=== PATIENT | female | born 2000 | race Caucasian/White ===

== ENCOUNTER 2024-07-27 03:30 | Inpatient (IN) | payer MEDICAID ==
[2024-07-27] MEDS ORDERED: Ondansetron 4 MG/2 ML SDV IV PRN (04:54)
[2024-07-27] MEDS ORDERED: Piperacillin/Tazobactam 3.375 GM AdvVial ONE (04:58)
[2024-07-27] MEDS: Piperacillin/Tazobactam 3.375 GM in Sodium Chloride 0.9% 50 ML IV ONE (05:10)
[2024-07-27] MEDS: Morphine 2 MG/ML SYRINGE IVPUSH PRN (05:25)
[2024-07-27] MEDS ORDERED: fentaNYL 250 MCG/5 ML SDV ONE ×2 (05:34→06:26)
[2024-07-27] MEDS: Scopalamine 1mg/3day Transdermal Patch TRDERM PRN (05:34)
[2024-07-27] MEDS ORDERED: Glycopyrrolate 0.2 MG/ML 5 ML MDV ONE (05:35)
[2024-07-27] MEDS ORDERED: Ondansetron 4 MG/2 ML SDV ONE (05:35)
[2024-07-27] MEDS ORDERED: Rocuronium 50 MG/5 ML Vial ONE ×2 (05:35→06:25)
[2024-07-27] MEDS ORDERED: Dexamethasone 4 MG/ML SDV ONE (05:35)
[2024-07-27] MEDS ORDERED: Propofol 200 MG/20 ML SDV ONE (05:35)
[2024-07-27] MEDS ORDERED: Neostigmine Methylsulfate 10 MG/10 ML MDV ONE (05:35)
[2024-07-27] MEDS ORDERED: Succinylcholine 200 MG/10 ML MDV ONE (05:35)
[2024-07-27 05:40] LABS: BASOPHILS ABSOLUTE AUTO 0.03 K/uL (0.00-0.10); BASOPHILS PERCENT AUTO 0.2 % (0.1-1.3); EOSINOPHILS ABSOLUTE AUTO 0.01 K/uL (0.00-0.40); EOSINOPHILS PERCENT AUTO 0.1 % (0.0-5.4); HEMATOCRIT 26.5 % (34.3-46.0); HEMOGLOBIN 8.2 g/dL (11.2-15.5); IMMATURE GRAN ABSOLUTE AUTO 0.05 K/uL (0.00-0.23); IMMATURE GRAN PERCENT AUTO 0.4 % (0.0-0.7); LYMPHOCYTES ABSOLUTE AUTO 1.59 K/uL (0.8-3.3); MEAN CORPUSCULAR HGB CONC 30.9 g/dL (31.6-35.5); MEAN CORPUSCULAR VOLUME 77.7 fL (81.4-99.0); MONOCYTES ABSOLUTE AUTO 0.56 K/uL (0.20-0.90); MONOCYTES PERCENT AUTO 4.6 % (3.3-12.6); NEUTROPHILS ABSOLUTE AUTO 10.03 K/uL (1.0-7.6); NEUTROPHILS PERCENT AUTO 81.7 % (40.0-78.1); PLATELET COUNT,PLT 303 K/uL (130-375); RED BLOOD CELL COUNT 3.41 M/uL (3.77-5.24); WHITE BLOOD CELL COUNT,WBC 12.3 K/uL (3.2-11.0)
[2024-07-27] MEDS ORDERED: CHECK PATCH DAILY TOP PRN (05:44)
[2024-07-27 06:01] LABS: A/G RATIO 1.1 (1.2-2.2); ALANINE AMINOTRANSFERASE,ALT 19 U/L (12-78); ALBUMIN 3.2 g/dL (3.4-5.0); ALKALINE PHOSPHATASE 77 U/L (46-116); ANION GAP 9.7 mmol/L (5.0-14.0); ASPARTATE AMNIOTRANSFERASE,AST 15 U/L (15-37); BILIRUBIN TOTAL 0.6 mg/dL (0.2-1.0); BLOOD UREA NITROGEN,BUN 8 mg/dL (7-18); CALCIUM 8.6 mg/dL (8.5-10.1); CARBON DIOXIDE,CO2 26 mmol/L (21-32); CHLORIDE,CL 106 mmol/L (100-108); CREATININE 0.6 mg/dL (0.6-1.0); EST CRCL DRUG DOSING (CG) 133.29 mL/min; ESTIMATED GFR 129 mL/min (>60); GLUCOSE RANDOM 106 mg/dL (74-106); POTASSIUM,K 3.6 mmol/L (3.6-5.2); SODIUM,NA 142 mmol/L (140-148)
[2024-07-27] MEDS: Sodium Chloride 0.9% 50 ML ONE (06:03)
[2024-07-27] MEDS: Bupivacaine 0.25%/EPINEPHrine 1:200,000 30 ML SDV ONE (06:15)
[2024-07-27] MEDS ORDERED: Lactated Ringers 1,000 ML ONE (06:22)
[2024-07-27] MEDS ORDERED: Labetalol 20 MG/4 ML Syringe ONE (06:24)
[2024-07-27 07:16] LABS: AMPHETAMINES SCREEN, URINE NEGATIVE (NEGATIVE); BARBITURATE SCREEN,URINE NEGATIVE (NEGATIVE); BENZODIAZEPINES SCREEN,URINE NEGATIVE (NEGATIVE); METHADONE SCREEN, URINE NEGATIVE (NEGATIVE); METHAMPHETAMINES SCREEN, URINE NEGATIVE (NEGATIVE); OXYCODONE SCREEN,URINE NEGATIVE (NEGATIVE); PROPOXYPHENE SCREEN,URINE NEGATIVE (NEGATIVE); THC SCREEN,URINE 50 NG/ML PRESUMPTIVE POSITIVE (NEGATIVE)
[2024-07-27] MEDS ORDERED: Sugammadex Sodium 200 MG/2 ML VIAL IV ONE (08:18)
[2024-07-27] MEDS: HYDROmorphone 1 MG/ML Syringe IVPUSH ONE (08:40)
[2024-07-27] MEDS: hydrOXYzine HCL 100 MG/2 ML SDV IM ONE (08:42)
[2024-07-27] MEDS: SCOPOLAMINE PATCH CHECK TOP SCH (09:18)
[2024-07-27] MEDS: Sodium Chloride 0.9% 1,000 ML IV SCH (09:22)
[2024-07-27] MEDS: Pantoprazole 40 MG Vial IV SCH (09:24)
[2024-07-27] MEDS: HYDROmorphone 0.5 MG/0.5 ML Syringe IVPUSH ONE (10:29)
[2024-07-27] MEDS: Piperacillin/Tazobactam/Dext 4.5 GM in Premix Bag 1 BAG IV ONE (13:34)
[2024-07-27] MEDS: Piperacillin/Tazobactam/Dext 4.5 GM in Premix Bag 1 BAG IV SCH (16:51)
[2024-07-27] MEDS: Acetaminophen 1,000 MG in Premix Bag 1 BAG IV PRN (20:26)
[2024-07-28 09:36] LABS: BASOPHILS ABSOLUTE AUTO 0.03 K/uL (0.00-0.10); BASOPHILS PERCENT AUTO 0.3 % (0.1-1.3); EOSINOPHILS ABSOLUTE AUTO 0.04 K/uL (0.00-0.40); EOSINOPHILS PERCENT AUTO 0.4 % (0.0-5.4); HEMATOCRIT 24.7 % (34.3-46.0); HEMOGLOBIN 7.6 g/dL (11.2-15.5); IMMATURE GRAN ABSOLUTE AUTO 0.03 K/uL (0.00-0.23); IMMATURE GRAN PERCENT AUTO 0.3 % (0.0-0.7); LYMPHOCYTES ABSOLUTE AUTO 2.87 K/uL (0.8-3.3); LYMPHOCYTES PERCENT AUTO 30.1 % (11.4-47.7); MEAN CORPUSCULAR HEMOGLOBIN 23.9 pg (31.6-35.5); MEAN CORPUSCULAR HGB CONC 30.8 g/dL (31.6-35.5); MEAN CORPUSCULAR VOLUME 77.7 fL (81.4-99.0); MONOCYTES ABSOLUTE AUTO 0.68 K/uL (0.20-0.90); MONOCYTES PERCENT AUTO 7.1 % (3.3-12.6); NEUTROPHILS PERCENT AUTO 61.8 % (40.0-78.1); PLATELET COUNT,PLT 354 K/uL (130-375); RED BLOOD CELL COUNT 3.18 M/uL (3.77-5.24); WHITE BLOOD CELL COUNT,WBC 9.6 K/uL (3.2-11.0)
[2024-07-28 09:52] LABS: ANION GAP 14.4 mmol/L (5.0-14.0); CALCIUM 8.8 mg/dL (8.5-10.1); CREATININE 0.6 mg/dL (0.6-1.0); EST CRCL DRUG DOSING (CG) 137.26 mL/min; POTASSIUM,K 3.4 mmol/L (3.6-5.2)
[2024-07-28] MEDS: Acetaminophen/HYDROcodone 108-2.5 MG/5 ML Soln 15 ML UD Cup PO PRN (12:12)
[2024-07-28] MEDS ORDERED: Morphine 2 MG/ML SYRINGE IVPUSH PRN (12:45)
[2024-07-28] MEDS: Acetaminophen Soln 650 MG/20.3 ML UD Cup PO PRN (15:16)
[2024-07-29 05:41] LABS: BASOPHILS ABSOLUTE AUTO 0.04 K/uL (0.00-0.10); BASOPHILS PERCENT AUTO 0.6 % (0.1-1.3); EOSINOPHILS ABSOLUTE AUTO 0.11 K/uL (0.00-0.40); EOSINOPHILS PERCENT AUTO 1.6 % (0.0-5.4); HEMATOCRIT 23.3 % (34.3-46.0); HEMOGLOBIN 7.2 g/dL (11.2-15.5); IMMATURE GRAN PERCENT AUTO 0.3 % (0.0-0.7); LYMPHOCYTES ABSOLUTE AUTO 2.99 K/uL (0.8-3.3); LYMPHOCYTES PERCENT AUTO 43.9 % (11.4-47.7); MEAN CORPUSCULAR HEMOGLOBIN 23.7 pg (31.6-35.5); MEAN CORPUSCULAR HGB CONC 30.9 g/dL (31.6-35.5); MEAN CORPUSCULAR VOLUME 76.6 fL (81.4-99.0); MONOCYTES ABSOLUTE AUTO 0.44 K/uL (0.20-0.90); MONOCYTES PERCENT AUTO 6.5 % (3.3-12.6); NEUTROPHILS ABSOLUTE AUTO 3.21 K/uL (1.0-7.6); NEUTROPHILS PERCENT AUTO 47.1 % (40.0-78.1); PLATELET COUNT,PLT 341 K/uL (130-375); RED BLOOD CELL COUNT 3.04 M/uL (3.77-5.24); WHITE BLOOD CELL COUNT,WBC 6.8 K/uL (3.2-11.0)
[2024-07-29 05:46] LABS: IMMATURE GRAN ABSOLUTE AUTO 0.02 K/uL (0.00-0.23)
[2024-07-29 05:50] LABS: CALCIUM 8.4 mg/dL (8.5-10.1); CREATININE 0.6 mg/dL (0.6-1.0); EST CRCL DRUG DOSING (CG) 137.26 mL/min; POTASSIUM,K 3.2 mmol/L (3.6-5.2)
[2024-07-29 05:54] LABS: ANION GAP 15.2 mmol/L (5.0-14.0)
[2024-07-29] MEDS: Potassium Chloride 20 MEQ Tab.ER PO SCH (11:47)
[2024-07-29] MEDS: Sucralfate 1 GM Tab PO SCH (11:57)
[2024-07-29] MEDS: Acetaminophen 500 MG Tab PO SCH (13:00)
[2024-07-29] MEDS ORDERED: Potassium Chloride 10 MEQ in Premix Bag 1 BAG IV SCH (13:00)
[2024-07-29] MEDS: Potassium Chloride 10 MEQ in Premix Bag 1 BAG IV SCH (14:54)
[2024-07-29] MEDS ORDERED: Potassium Chloride 20 MEQ in Premix Bag 1 BAG IV ONE (16:00)
[2024-07-29] MEDS: oxyCODONE 5 MG Tab PO PRN (17:35)
[2024-07-29] MEDS: Piperacillin/Tazobactam/Dext 4.5 GM in Premix Bag 1 BAG IV SCH (19:34)
[2024-07-29] MEDS: traZODone 50 MG Tab PO SCH (23:00)
[2024-07-30 12:25] LABS: CALCIUM 8.7 mg/dL (8.5-10.1); CREATININE 0.6 mg/dL (0.6-1.0); EST CRCL DRUG DOSING (CG) 137.26 mL/min; POTASSIUM,K 3.2 mmol/L (3.6-5.2)
[2024-07-30] MEDS: Amoxicillin/Clavulanate K 875-125 MG Tab PO SCH (12:58)
[2024-07-30 13:00] LABS: ANION GAP 15.2 mmol/L (5.0-14.0)
[2024-07-30] MEDS ORDERED: traZODone 50 MG Tab PO SCH (21:00)
[2024-07-31 05:44] LABS: BASOPHILS ABSOLUTE AUTO 0.05 K/uL (0.00-0.10); BASOPHILS PERCENT AUTO 0.9 % (0.1-1.3); EOSINOPHILS ABSOLUTE AUTO 0.09 K/uL (0.00-0.40); EOSINOPHILS PERCENT AUTO 1.6 % (0.0-5.4); HEMATOCRIT 26.5 % (34.3-46.0); HEMOGLOBIN 8.1 g/dL (11.2-15.5); IMMATURE GRAN PERCENT AUTO 0.4 % (0.0-0.7); LYMPHOCYTES ABSOLUTE AUTO 2.55 K/uL (0.8-3.3); LYMPHOCYTES PERCENT AUTO 46.6 % (11.4-47.7); MEAN CORPUSCULAR HEMOGLOBIN 23.7 pg (31.6-35.5); MEAN CORPUSCULAR HGB CONC 30.6 g/dL (31.6-35.5); MEAN CORPUSCULAR VOLUME 77.5 fL (81.4-99.0); MONOCYTES ABSOLUTE AUTO 0.35 K/uL (0.20-0.90); MONOCYTES PERCENT AUTO 6.4 % (3.3-12.6); NEUTROPHILS ABSOLUTE AUTO 2.41 K/uL (1.0-7.6); NEUTROPHILS PERCENT AUTO 44.1 % (40.0-78.1); PLATELET COUNT,PLT 433 K/uL (130-375); RED BLOOD CELL COUNT 3.42 M/uL (3.77-5.24); WHITE BLOOD CELL COUNT,WBC 5.5 K/uL (3.2-11.0)
[2024-07-31 05:53] LABS: IMMATURE GRAN ABSOLUTE AUTO 0.02 K/uL (0.00-0.23)
[2024-07-31 05:59] LABS: CALCIUM 8.7 mg/dL (8.5-10.1); CREATININE 0.6 mg/dL (0.6-1.0); EST CRCL DRUG DOSING (CG) 137.26 mL/min; POTASSIUM,K 3.7 mmol/L (3.6-5.2)
[2024-07-31] MEDS: Lactobacillus Rhamnosus GG (Probiotic) Cap PO SCH (11:09)
== END 2024-07-31 11:21 | disposition home or self-care (01) | DRG 326 ==
LOC: JP.ICU 03:30
PROVIDERS: ADMIT Surgery; ATTEND Surgery
PROC: 0DJW4ZZ Inspection of Peritoneum, Percutaneous Endoscopic Approach (ICD-10-PCS; principal; 2024-07-27 05:30)
PROC: 0DQ68ZZ Repair Stomach, Via Natural or Artificial Opening Endoscopic (ICD-10-PCS; principal; 2024-07-27 05:30)
DX: K66.8 Other specified disorders of peritoneum (principal); K28.1 Acute gastrojejunal ulcer with perforation; H54.7 Unspecified visual loss; G43.909 Migraine, unspecified, not intractable, without status migrainosus; F41.9 Anxiety disorder, unspecified; F31.9 Bipolar disorder, unspecified; Z98.890 Other specified postprocedural states; Z88.8 Allergy status to other drugs, medicaments and biological substances; Z79.899 Other long term (current) drug therapy; Z86.16 Personal history of COVID-19
CPT/HCPCS: 00840-QZ; 36415; 80048; 80053; 80305-QW; 81025; 85025; 86850; 86900; 86901; A9270-GY; J0131; J0330; J1100; J1171; J1596; J1920; J2270; J2405; J2470; J2543; J2704; J2710; J3010; J3410; J3480; J3490; J7030; J7120